=== PATIENT | female | born 1970 | race Caucasian/White ===

== ENCOUNTER → 2018-07-27 | Outpatient (CLI) | payer BC ==
--- NOTE | 2018-07-27 16:58 | KCIC ---
CHEST PA LATERAL Clinical indications: Preoperative chest x-ray. Patient is scheduled for bilateral carpal tunnel surgery. Patient is 47 years old. COMPARISON: None available. Findings: No acute lung infiltrate or pleural effusion or pulmonary edema or lung mass or pneumothorax is seen. The heart size, pulmonary vasculature, mediastinum and both charles are unremarkable. The osseous structures appear intact. Impression: No acute radiographic abnormality is seen. Electronically signed by: Jose Miguel Salas MD (07/27/2018 4:55 PM) [place] [id number]
== END | disposition home or self-care (01) ==
LOC: KCIC 14:58
PROVIDERS: ATTEND Family Medicine
DX: Z01.818 Encounter for other preprocedural examination (principal); G56.03 Carpal tunnel syndrome, bilateral upper limbs
CPT/HCPCS: 71046